=== PATIENT | male | born 1945 | race Caucasian/White ===

== ENCOUNTER → 2020-12-07 | Outpatient (CLI) | payer MEDICARE, OTHER ==
[~2020-12-07] MED LIST: AZITHROMYCIN500 MG PO; ECOTRIN81 MG PO; FLOMAX0.4 MG PO; LIPITOR TAB 2020 MG PO; LOPRESSOR 25 MG25 MG PO; MOBIC15 MG PO; OMNICEF 300 MG300 MG PO
== END ==
LOC: KOH-I 11:19
DX: N50.82 Scrotal pain (principal); N45.1 Epididymitis
CPT/HCPCS: 76870

== ENCOUNTER 2021-01-29 08:53 | Emergency (ER) | payer MEDICARE, OTHER ==
[~2021-01-29 08:53] MED LIST changes: -AZITHROMYCIN500 MG PO; -OMNICEF 300 MG300 MG PO
[2021-01-29 09:39] LABS: HEMOGLOBIN 13.3 gm/dl (14.0-17.5); RED BLOOD COUNT 4.32 M/UL (4.20-5.50)
[2021-01-29 10:01] LABS: BUN/CREATININE RATIO 19 (0-10)
[2021-01-29] MEDS ORDERED: AZITHROMYCIN500 MG PO (13:23)
[2021-01-29] MEDS ORDERED: OMNICEF 300 MG300 MG PO (13:23)
== END 2021-01-29 13:30 | disposition home or self-care (01) ==
LOC: ER1 08:53
PROVIDERS: Emergency Medicine
DX: J18.9 Pneumonia, unspecified organism (principal); R19.7 Diarrhea, unspecified; Z90.89 Acquired absence of other organs; Z88.5 Allergy status to narcotic agent; Z20.822 Contact with and (suspected) exposure to COVID-19
CPT/HCPCS: 0240U; 70450; 71045; 80053; 81001; 82550; 82553; 83605; 83874; 84484; 85025; 87040; 87081; 87086; 87880; 93005; 99284

== ENCOUNTER → 2021-02-01 | Outpatient (CLI) | payer MEDICARE, OTHER ==
[~2021-02-01] MED LIST changes: +AZITHROMYCIN500 MG PO; +OMNICEF 300 MG300 MG PO
[2021-02-01 17:21] LABS: HEMOGLOBIN 14.3 gm/dl (14.0-17.5); RED BLOOD COUNT 4.7 M/UL (4.20-5.50); WHITE BLOOD COUNT 4.9 K/UL (4.5-11.0)
[2021-02-01 17:39] LABS: BUN/CREATININE RATIO 21 (0-10)
== END ==
LOC: LAB 16:49
PROVIDERS: Internal Medicine
DX: J18.9 Pneumonia, unspecified organism (principal); R74.8 Abnormal levels of other serum enzymes
CPT/HCPCS: 80053; 85025; 87070; 87077; 87186; 87205

== ENCOUNTER 2021-04-07 05:26 | Emergency (ER) | payer MEDICARE, OTHER ==
[2021-04-07 05:51] LABS: HEMOGLOBIN 16.4 gm/dl (14.0-17.5); RED BLOOD COUNT 5.27 M/UL (4.20-5.50); WHITE BLOOD COUNT 6.5 K/UL (4.5-11.0)
[2021-04-07 06:10] LABS: BUN/CREATININE RATIO 17 (0-10)
[2021-04-07] MEDS ORDERED: HYDROCODON-ACE1 EAC4 PO (09:26)
== END 2021-04-07 09:55 | disposition home or self-care (01) ==
LOC: ER1 05:26
PROVIDERS: Student in an Organized Health Care Education/Training Program
DX: N13.2 Hydronephrosis with renal and ureteral calculous obstruction (principal); Z88.5 Allergy status to narcotic agent; Z90.89 Acquired absence of other organs
CPT/HCPCS: 80053; 82550; 82553; 83690; 83874; 84484; 85025; 93005; 96374; 96375; 99284; J1170; J1885; J2405; Q9967

== ENCOUNTER → 2021-10-08 | Outpatient (CLI) | payer MEDICARE, OTHER ==
[~2021-10-08] MED LIST changes: +HYDROCODON-ACE1 EAC4 PO
[2021-10-08 15:57] LABS: BUN/CREATININE RATIO 16 (0-10)
== END ==
LOC: LAB 14:29
PROVIDERS: Ophthalmology
DX: C69.41 Malignant neoplasm of right ciliary body (principal)
CPT/HCPCS: 36415; 80048

== ENCOUNTER → 2021-10-11 | Outpatient (CLI) | payer MEDICARE, OTHER | LOC: EMI 08:33 | DX: C69.41 Malignant neoplasm of right ciliary body (principal); J34.2 Deviated nasal septum | CPT/HCPCS: 70543; 70553; A9577 ==